=== PATIENT | male | born 1965 | race Caucasian/White ===

== ENCOUNTER 2017-03-05 20:13 | Emergency (ER) | payer SELFPAY ==
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
== END 2017-03-05 20:36 | disposition home or self-care (01) ==
LOC: ER 20:13
DX: T75.4XXA Electrocution, initial encounter (principal); Y35.891A Legal intervention involving other specified means, law enforcement official injured, initial encounter
CPT/HCPCS: 99283